=== PATIENT | female | born 1980 | race Caucasian/White ===

== ENCOUNTER 2018-11-12 10:24 | Inpatient (IN) | payer OTHER ==
--- NOTE | 2018-11-12 10:52 | EDPHY ---
H & P Time Seen by Provider: 11/12/18 10:27 HPI/ROS: HPI: This is a 38-year-old female who presents with Chief Complaint: Worsening depression and suicidal thoughts Location: Psychiatric Quality: Worsening depression and suicidal thoughts Duration: 4 days Signs and Symptoms: no auditory hallucinations, no visual hallucinations, + suicidal ideation with a plan, no homicidal ideation, no paranoia Timing: Acute on chronic Severity: Severe Context: Patient has a history of anxiety, depression, taking Prozac 40 mg and Ativan as needed for the last 1 year, presents accompanied by her with constant thoughts of ending her life by driving her car over a dragan or choking herself over the last 4 days. She has not been able to come out of their bedroom or get out of bed for the last 4 days. She has excessive crying and sobbing. She has not eaten in 4 days. She has not participated in the care of her children or family. Patient reports feelings of hopelessness, being very self critical, upset and self conscious about female balding and having to wear wig. Met with psychiatrist today and expressed these concerns and her psychiatrist sent her to the emergency room for M1 hold. She sees a counselor monthly. Currently on her menses. Modifying Factors: Prozac and Ativan Comment: ROS: A comprehensive 10 system review of systems is otherwise negative aside from elements mentioned in the history of present illness. MEDICAL/SURGICAL/SOCIAL HISTORY: Medical history: Anxiety, Depression Surgical history: Denies Social history: Nonsmoker. with children. Family history noncontributory. CONSTITUTIONAL: Tearful, tidy, cooperative, adult white female, wearing beanie , at bedside, awake and alert, mild distress HEENT: Atraumatic and normocephalic, PERRL, EOMI. Nares patent; no rhinorrhea; no nasal mucosal edema. Tympanic membranes clear. Oropharynx clear, no exudate and moist pink mucosa. Airway patent. No lymphadenopathy. No meningismus. Cardiovascular: Normal S1/S2, regular rate, regular rhythm, without murmur rub or gallop. PULMONARY/CHEST: Symmetrical and nontender. Clear to auscultation bilaterally. Good air movement. No accessory muscle usage. ABDOMEN: Soft, nondistended, nontender, no rebound, no guarding, no peritoneal signs, no masses or organomegaly. No CVAT. EXTREMITIES: 2/2 pulses, strength 5/5, no deformities, no clubbing, no cyanosis or edema. NEUROLOGICAL: no focal neuro deficits. GCS 15. SKIN: Warm and dry, no erythema. no rash. Good capillary refill. PSYCH: Low self-esteem, very self critical, feelings of hopelessness, good eye contact, no flight of ideas, organized thought process, fair insight and judgment, no auditory hallucinations, no visual hallucinations, + suicidal ideation with a plan, no homicidal ideation, no paranoia Source: Patient, Family (), RN/MD Exam Limitations: No limitations - Personal History LMP (Females 10-55): 1-7 Days Ago Current Tetanus Diphtheria and Acellular Pertussis (TDAP): Yes Tetanus Vaccine Date: 2013 - Medical/Surgical History Hx Asthma: No Hx Chronic Respiratory Disease: No Hx Diabetes: No Hx Cardiac Disease: No Hx Renal Disease: No Hx Cirrhosis: No Hx Alcoholism: No Hx HIV/AIDS: No Hx Splenectomy or Spleen Trauma: No Other PMH: anxiety, depression, SI - Social History Smoking Status: Never smoked Constitutional: Initial Vital Signs Temperature (C) 37.1 C 11/12/18 10:27 Heart Rate 69 11/12/18 10:27 Respiratory Rate 16 11/12/18 10:27 Blood Pressure 148/134 H 11/12/18 10:27 O2 Sat (%) 98 11/12/18 10:27 O2 Delivery Mode Room Air Allergies/Adverse Reactions: No Known Allergies Allergy (Verified 04/11/16 18:51) Home Medications: Medication Instructions Recorded FLUoxetine [Prozac 10 MG (RX)] 10 mg PO DAILY 11/26/12 Hydrocodone/APAP 5/325 [[place] 1 - 2 tab PO Q4PRN PRN #12 tab 04/11/16 5/325 (*)] Ativan 11/12/18 Medical Decision Making ED Course/Re-evaluation: 1100: Vital signs reviewed and show mildly elevated systolic and diastolic pressures. Placed on M1 hold for worsening severe depression with suicidal ideation with a plan and failure of outpatient treatment. Labs and urine drug screen ordered 1135: Labs reviewed and grossly unremarkable. Urine drug screen positive for benzodiazepines and marijuana. Medically clear for mental health evaluation. 1200: [facility] evaluation in progress. 1457: Notified by [facility] that patient has been accepted at [address] [place] [address] for inpatient psychiatric treatment by Dr. Mcclain. EMTALA form completed. This patient was seen under the supervision of my primary supervising physician. I evaluated care for this patient with attending. Differential Diagnosis: Differential diagnosis includes but is not limited to major depression, anxiety disorder, schizophrenia, bipolar disorder, intoxicant use, suicidal ideation, psychosis, dea. - Data Points Laboratory Results: Laboratory Results 11/12/18 10:58 11/12/18 10:58 11/12/18 11/12/18 11/12/18 11:07 10:58 10:58 WBC RBC Hgb Hct MCV MCH MCHC RDW Plt Count MPV Neut % (Auto) Lymph % (Auto) [place] % (Auto) Eos % (Auto) Baso % (Auto) Nucleat RBC Rel Count Absolute Neuts (auto) Absolute Lymphs (auto) Absolute Monos (auto) Absolute Eos (auto) Absolute Basos (auto) Absolute Nucleated RBC Immature Gran % Immature Gran # Sodium 137 mEq/L mEq/L (135-145) Potassium 4.4 mEq/L mEq/L (3.5-5.2) Chloride 100 mEq/L mEq/L (97-110) Carbon Dioxide 27 mEq/l mEq/l (22-31) Anion Gap 10 mEq/L mEq/L (6-14) BUN 20 mg/dL mg/dL (7-23) Creatinine 0.8 mg/dL mg/dL (0.6-1.0) Estimated GFR > 60 Glucose 99 mg/dL mg/dL (70-100) Calcium 10.0 mg/dL mg/dL (8.5-10.4) Beta HCG, Qual NEGATIVE Urine Opiates Screen NEGATIVE (NEGATIVE) Urine Barbiturates NEGATIVE (NEGATIVE) Ur Phencyclidine Scrn NEGATIVE (NEGATIVE) Ur Amphetamine Screen NEGATIVE (NEGATIVE) U Benzodiazepines Scrn NON-NEGATIVE H (NEGATIVE) Urine Cocaine Screen NEGATIVE (NEGATIVE) U Marijuana (THC) Screen NON-NEGATIVE H (NEGATIVE) Ethyl Alcohol < 10 mg/dL mg/dL (0-10) 11/12/18 10:58 WBC 4.94 10^3/uL 10^3/uL (3.80-9.50) RBC 4.92 10^6/uL 10^6/uL (4.18-5.33) Hgb 14.9 g/dL g/dL (12.6-16.3) Hct 44.2 % % (38.0-47.0) MCV 89.8 fL fL (81.5-99.8) MCH 30.3 pg pg (27.9-34.1) MCHC 33.7 g/dL g/dL (32.4-36.7) RDW 11.8 % % (11.5-15.2) Plt Count 341 10^3/uL 10^3/uL (150-400) MPV 8.8 fL fL (8.7-11.7) Neut % (Auto) 58.1 % % (39.3-74.2) Lymph % (Auto) 33.2 % % (15.0-45.0) [place] % (Auto) 6.7 % % (4.5-13.0) Eos % (Auto) 1.2 % % (0.6-7.6) Baso % (Auto) 0.6 % % (0.3-1.7) Nucleat RBC Rel Count 0.0 % % (0.0-0.2) Absolute Neuts (auto) 2.87 10^3/uL 10^3/uL (1.70-6.50) Absolute Lymphs (auto) 1.64 10^3/uL 10^3/uL (1.00-3.00) Absolute Monos (auto) 0.33 10^3/uL 10^3/uL (0.30-0.80) Absolute Eos (auto) 0.06 10^3/uL 10^3/uL (0.03-0.40) Absolute Basos (auto) 0.03 10^3/uL 10^3/uL (0.02-0.10) Absolute Nucleated RBC 0.00 10^3/uL 10^3/uL (0-0.01) Immature Gran % 0.2 % % (0.0-1.1) Immature Gran # 0.01 10^3/uL 10^3/uL (0.00-0.10) Sodium Potassium Chloride Carbon Dioxide Anion Gap BUN Creatinine Estimated GFR Glucose Calcium Beta HCG, Qual Urine Opiates Screen Urine Barbiturates Ur Phencyclidine Scrn Ur Amphetamine Screen U Benzodiazepines Scrn Urine Cocaine Screen U Marijuana (THC) Screen Ethyl Alcohol Departure - Departure Disposition: [facility] IP Clinical Impression: Severe major depression without psychotic features, Planning to commit suicide Condition: Fair
[2018-11-12 11:17] LABS: PLATELET COUNT 341 10^3/uL (150-400)
--- NOTE | 2018-11-12 16:10 | ASMTTLCEVL ---
TLC Evaluation - Basic Information Evaluation Start Date and 11/12/2018 12:00 PM Time Hospital Status Answers: M1 Hold 72-hr M1 Hold Start Date 11/12/2018 11:00 AM and Time Patient statement Notes: "I've never felt like I enjoy life like a normal person." Narrative Notes: The patient is a 38 y/o female, , unemployed with a hx of depression. She lives at home with her family in [place], [place]. The patient self presented in the [facility] ED after her visiting her psychiatrist, who recommended she come to the ED for further evaluation. The patient was read her rights @ 12:00. Per M1 hold placed by ED physician, "Patient presents with suicidal thoughts with a plan of driving her car off of a dragan or choking herself over the last four days. Worsening severe depression. Unable to participate in activities of daily living. Failed outpatient treatment." The patient reported that the main reason she wants to live is for her two children (6 y/o, 4 y/o). She reported that she has not gotten out of bed for the past week, nor eatenlosing "10lbs." She reported decreased concentration, crying spells, suicidal ideation, and anger/rage. She stated, "I've never felt like I enjoy life like a normal person." The patient reported that today is the first day she has "started to feel better" including leaving bed and having an appetite. The patient expressed anxiety and ambivalence; stating "I don't know what to expect." The patient expressed concern that her symptoms were due to PMS and related to possible hormonal imbalance resulting in a recent visit to the director of infection prevention; starting the patient on control to regulate menstruation. The patient's was present in the [facility] ED and is concerned by her suicidal statements and hopeful about connecting her with resources. 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 Prior suicide attempts Notes: The patient denied any prior suicide attempts. Prior hospitalizations Notes: The patient reported the following previous hospitalizations for mh. Treatment Responses Notes: There is not sufficient information to determine the patients treatment response. History of violence Notes: The patient denied any homicidal ideation or previous hx of violence. The patient reported a hx of severe bullying in adolescence. She reported recent feelings of "anger/rage;" unexpressed. Therapist: Dr. Jennings [phone] Psychiatrist: Fredy Flood [phone] Medications (name, dosage, route, freq uency) Notes: STOP Prozac 40mg, once daily, PO START Lexapro 20mg, once daily, PO Lorazepam, .5mg, PRN, up to three times daily, PO Allergies/Reaction Notes: no known allergies Sleep Notes: The patient reported that she has been "sleeping all day and unable to get out of bed" for the past week. Appetite Notes: The patient reported a decreased appetite and minimal intake over the past week. Medical/Surgical history Notes: The patient denied any significant medical/surgical hx. Substance use history (frequency, intensity, his tory, duration) Notes: There was no substance abuse reported. Family composition Notes: The patient's family lives locally including her relatives. The patient has two children (4 y/o, 6 y/o). Family psychiatric/substance abuse history Notes: The patient denied any family psychiatric/substance abuse hx with the exclusion of her paternal uncle who abused heroin. Developmental history Notes: The patient denied any developmental issues or learning disabilities. The patient denied ADD or ADHD. The patient denied any TBIs, concussions, or LOC.The patient denied any physical abuse, emotional abuse, or sexual abuse. The patient endorsed having achieved normal developmental milestones. The patient reported a hx of severe bullying in adolescence. Abuse concerns Answers: None Marital status/children Notes: The patient is and has two children (4 y/o, 6 y/o). Living situation Notes: The patient lives at home with her family. Sexual history/orientation Notes: The patient is heterosexual. Peer support/family strengths Notes: The patient endorsed having a supportive peer group. She reported that she struggles to trust her friendships. Education level/history Notes: The patient reported having attended high school and some college, bachelors degree in Computer Science. Work history Notes: The patient is unemployed. She is a fulltime parent. Notes: no known affiliation Legal Notes: The patient denied any legal issues. Zoroastrian/Spiritual Notes: The patient reported none that would interfere with treatment. Leisure Notes: The patient reported enjoying exercise and snowboarding. Collateral Notes: The collateral data was obtained from current and previous [facility] ed records/staff, 27-65 M1, and family members: Tino May. Patient's strengths Answers: Honest (Please select at least TWO strengths): Insightful Motivated for Treatment Supportive Family [facility] Evaluation - Mental Status Exam Appearance: Answers: Appropriate Clean Well Groomed Neat Eye Contact: Answers: Appropriate for Culture Good/Direct Mood: Answers: Depressed Sad Affect: Answers: Appropriate Anxious Calm Nervous Sad Tearful Behavior: Answers: Appropriate Cooperative Anxious Crying Fatigued Talkative Speech: Answers: Relevant Logical Clear Coherent Soft Thought Process: Answers: Organized Oriented Goal Oriented Insight: Answers: Fair Judgement: Answers: Poor Manic Signs/Symptoms Answers: Irritability Depression Answers: Crying Spells Signs/Symptoms: Difficulty Concentrating Diminished Interest Diminished Pleasure Hopelessness Sad Mood Anxiety Signs/Symptoms Answers: Generalized Anxiety Panic Attacks Hallucinations: Answers: None Current Stage of Change Answers: Contemplation Pt reported to have Answers: Yes suicidal/self-injuring ideation/behavior? Pt reported to be making Answers: Yes suicidal/self-injuring threats? Pt reported to have Answers: No aggression/assault ideation/behavior? Pt reported to be making Answers: No aggression/assault threats? Pt exhibits inability to Answers: No care for self/grave disability? Ideation/behavior is Answers: No chronic? Patient has a specific Answers: Yes plan? Pt has access to means to Answers: Yes execute the plan? Ideation has Answers: No delusional/hallucinatory content? History of Answers: Yes suicidal/self-injuring ideation, behavior, or threats? History of Answers: No aggressive/assaultive ideation, behavior, or threats? History of serious Answers: No physical harm to self/others while in treatment setting? [facility] Evaluation - Suicide/Homicide Risk Suicide Risk Factors: Answers: Anhedonia Anxiety/Panic, Severe Hopelessness Inadequate Social Support Major Depression Homicide/violence risk Answers: None factors: Current Suicidal Answers: No Ideation? Current Suicidal Ideation Answers: Yes in the Past 48 Hours? Current Suicidal Ideation Answers: No in the Past Month? Suicide Internal Answers: Absence of Psychosis Protective Factors: Frustration Tolerance Suicide External Answers: Positive Therapeutic Protective Factors: Relationships Responsibility to Children Ranking of patient's Answers: Severe suicidal risk: Ranking of patient's Answers: Low homicidal risk: [facility] Evaluation - Wrap-up BDI Total Score: 49 BDI Question #2 Score: 2 BDI Question #9 Score: 1 BSS Total Score: 10 AXIS I Diagnosis (include DSM-V and ICD-10 codes), must also be entered in [employer], which is the source of truth. Notes: Persistent Depressive Disorder (Dysthymia) 300.4 (F34.1) Evaluation End Date and 11/12/2018 04:00 PM Time (HH:MM): Date Signed: 11/12/2018 04:10 PM Electronically Signed By:Lili Marion
--- NOTE | 2018-11-12 16:12 | ASMTTCLDSP ---
TLC Discharge Disposition Disposition: Answers: Admit Discharge Concerns/Recommendations: Notes: In consultation with [facility] ED physician, Omayra Rothman MD and [facility] on-call psychiatrist, Arley Mcclain MD, both concurred that pt appears to meet 27-65 criteria requiring psychiatric hospitalization as the patient appears to be an imminent risk of harm to self due to a mental illness condition. The patient was read the Patient Rights and Responsibilities Statement (placed on chart). The patient was given the 3[facility] prohibited belongings list while in the ED. Was patient given the Answers: Not applicable Inpatient Behavioral Health Prohibited Belongings List while in the ED? For inpatient Arley Mcclain MD admission, the following psychiatrist agreed to accept patient for admission to Behavioral Health ([facility]): Type of Hold: Answers: M1/72-hour Hold Hold initiated by: Answers: ED Physician Date Signed: 11/12/2018 04:12 PM Electronically Signed By:Lili Marion
--- NOTE | 2018-11-12 16:14 | ASMTLCPROG ---
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 The patient stated, "My hair is never coming back and it is falling out by the handfuls. It has a huge effect on me." Date Signed: 11/12/2018 04:14 PM Electronically Signed By:Lili Marion
[2018-11-12] MEDS ORDERED: ACETAMINOPHEN 325 MG TAB PO PRN (19:14)
[2018-11-12] MEDS ORDERED: MAGNESIUM HYDROXIDE 30 ML UDCUP PO PRN (19:14)
[2018-11-12] MEDS ORDERED: MAG HYDROX/AL HYDROX/SIMETH 30 ML UDCUP PO PRN (19:14)
[2018-11-12] MEDS ORDERED: NICOTINE POLACRILEX 2 MG GUM B PRN (19:14)
--- NOTE | 2018-11-13 09:53 | ASMTBHMTP ---
Master Treatment Plan Master Treatment Plan Answers: Depressed Mood with for: Suicidal Ideation Date: 11/13/2018 Diagnosis on Admission: Persistent Depressive Disorder (Dysthymia) 300.4 Expected length of stay: 3-5 Days Reason for admission: Notes: The patient is a 38 y/o female, , unemployed with a hx of depression. She lives at home with her family in [place], [place]. The patient self presented in the [facility] ED after her visiting her psychiatrist, who recommended she come to the ED for further evaluation. The patient was read her rights @ 12:00. Per M1 hold placed by ED physician, "Patient presents with suicidal thoughts with a plan of driving her car off of a dragan or choking herself over the last four days. Worsening severe depression. Unable to participate in activities of daily living. Failed outpatient treatment." The patient reported that the main reason she wants to live is for her two children (6 y/o, 4 y/o). She reported that she has not gotten out of bed for the past week, nor eatenlosing "10lbs." She reported decreased concentration, crying spells, suicidal ideation, and anger/rage. She stated, "I've never felt like I enjoy life like a normal person." The patient reported that today is the first day she has "started to feel better" including leaving bed and having an appetite. The patient expressed anxiety and ambivalence; stating "I don't know what to expect." The patient expressed concern that her symptoms were due to PMS and related to possible hormonal imbalance resulting in a recent visit to the cam milling machine operator; starting the patient on control to regulate menstruation. The patient's was present in the [facility] ED and is concerned by her suicidal statements and hopeful about connecting her with resources. Patient's stated presenting problems: Notes: Pt. reports having a "week of hormonal changes". Pt. reports having an appointment with her psychiatrist and him recommending she come into the hospital. Patient's goals for treatment: Notes: Pt. reports she "want to figure out if there's more to it", and "why it comes and goes". Patient's strengths: Notes: Pt. reports she is "empathic, kind, and a good support for friends". Identify supports outside of hospital: Notes: Pt. stated her and her mother. Discharge criteria: Notes: Suicidal ideation will resolve and patient will have a plan to safely manage recurrent suicidal ideation. Initial disposition plan/considerations: Notes: Pt. stated she will be returning to her home. Master Treatment Plan Required Signatures Psychiatrist signature: Answers: Psychiatrist: RN on-shift signature: Answers: RN: Patient signature: Answers: Patient: Date Signed: 11/13/2018 09:52 AM Electronically Signed By:Vickie Orourke
--- NOTE | 2018-11-13 10:35 | ASMTCMCOM ---
CM Note CM Note Notes: CC met with pt. to complete MTP. Pt. reports being on prozac, but having a tolerance to it. Pt. reports possibly needing to increase her dosage. Pt. reports for the last three months having "bad PMS". Pt. reports having "uncontrollable anger" and then feeling depressed once she begins her cycle. Pt. reports seeing her OBGYN recently and restarting control to help manage her cycles. 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 Pt. reports this being a constant issue for her, adding she has several wigs and hats. Pt. reports having providers in [place], Fredy Flood (thx) and Que Kenny (Prescriber), and having signed ROIs. Pt. reports she is interested in an IOP. 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 Pt. reports having very negative self talk. CC and Pt. discussed different therapist and skills to assist patient in increasing her self worth. Pt. presents as alert, mostly calm, slightly anxious, tearful at times, good eye contact, having some insight, and cooperative. Staff report pt. sleeping 9 hours and being medication compliant. TLC left messages with pt's providers. CC to provide information on available IOPs and to assist pt. is enrolling in one. Date Signed: 11/13/2018 10:35 AM Electronically Signed By:Vickie Orourke
[2018-11-13] MEDS: ETHINYL ESTRADIOL PO SCH ×2 (10:44→16:10)
[2018-11-13] MEDS: DROSPIRENONE PO SCH ×2 (10:44→16:10)
[2018-11-13] MEDS ORDERED: LORazepam 0.5 MG TAB PO PRN (15:24)
[2018-11-13] MEDS: FLUoxetine 20 MG CAP PO SCH (15:45)
--- NOTE | 2018-11-13 16:11 | BCON ---
[f rep st] BEHAVIORAL HEALTH CONSULTATION INTERNAL MEDICINE CONSULTATION DATE OF CONSULTATION: 11/13/2018 REFERRING PHYSICIAN: Arley Mcclain MD REASON FOR CONSULTATION: Medical clearance for inpatient behavioral health stay. HISTORY OF PRESENT ILLNESS: This patient has a 4-day history of exacerbation of depression. She came to the emergency department with her . She was evaluated by the mental health team and admitted for further psychiatric care. She currently is without any acute medical complaints. PAST MEDICAL HISTORY: 1. Depression. 2. Androgenetic alopecia. PAST SURGICAL HISTORY: She has not had any surgeries. MEDICATIONS: She was taking fluoxetine and lorazepam as well as a control pill. SOCIAL HISTORY: She is . She lives with her . She has 2 young children. 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 She is a former smoker. She uses marijuana. FAMILY HISTORY: Noncontributory. PHYSICAL EXAM: VITAL SIGNS: Blood pressure is 121/62, heart rate is 71, respiratory rate is 16, oxygen saturation was 90% on room air at 6 a.m. today, temperature is 36.7 degrees centigrade. Her weight is 46.5 kg for a body mass index of 19.4. GENERAL: This is a well-nourished, well-developed woman, sitting at the desk in her room, dressed in street clothes, cooperative, and in no acute distress. HEENT: Extraocular movements are intact. Pupils are equal , round, reactive to light. Mucous membranes are moist. Dentition is in good condition. She has an uncrowded airway, Mallampati class 1. NECK: Supple. HEART: Regular rate and rhythm with no murmurs, rubs, or gallops. LUNGS: Clear to auscultation bilaterally. ABDOMEN: Benign. EXTREMITIES: There is no cyanosis, clubbing, or edema. NEUROLOGIC: She is alert and oriented x3. Cranial nerves 2 through 12 are grossly intact. There is no focal weakness. Sensation is intact to light touch. Gait is within normal limits. LABORATORY STUDIES: Drawn yesterday. CBC was completely within normal limits. Serum chemistry revealed normal renal function and electrolytes. Hemoglobin A1c was normal at 5.6. Lipid panel revealed slightly elevated triglycerides at 180, elevated cholesterol of 265, an elevated LDL at 148 and an elevated HDL at 81. Beta HCG was negative for . Toxicology screen in the serum was negative for ethyl alcohol. The urine was non-negative for marijuana and benzodiazepines. ASSESSMENT AND RECOMMENDATIONS: 1. Mental health issues pending further evaluation and management per Psychiatry and the mental health team. 2. Dyslipidemia. Given her age and otherwise good health, there is no indication at present to consider treatment. This should be monitored approximately once a decade. 3. Androgenetic alopecia. She reports that she has had multiple treatments and wears wigs currently. There is no further evaluation or treatment indicated. I see no medical contraindications to this patient's continued stay on the inpatient behavioral health unit or to any psychiatric medications or procedures. Thank you very much for including me in the care of this patient. Please do not hesitate to contact me or the hospitalist service should there be need for further medical evaluation. /[id number]/MODL MTDD
--- NOTE | 2018-11-13 16:55 | BAPA ---
[f rep st] ADMISSION PSYCHIATRIC ASSESSMENT DATE OF SERVICE: 11/13/2018 CHIEF COMPLAINT: "I have never felt like I enjoy life like a normal person." HISTORY OF PRESENT ILLNESS: The patient is a 38-year-old woman with a history of depression. She lives at home with her family. She self presented to [facility] ED after her psychiatrist recommended that she come into the hospital for further evaluation. She was placed on a mental health hold by the ED physician. The M1 hold states, "patient presents with suicidal thoughts with a plan of driving her car off a dragan or choking herself for the last 4 days, worsening severe depression, unable to participate in activities of daily living. Failed outpatient treatment." The patient reports that she does not have a plan or intent to hurt herself. She says the main reason she wants to live is for her 2 children. However, she does report not getting out of bed for the past week, a 10 pound weight loss, decreased focus, concentration, crying spells, increased irritability, increased mood swings, suicidal thoughts. She said that 11/12/2018, was the first day she "started to feel better," including getting out of bed and getting dressed and having an appetite. The patient says that she thinks her symptoms are due to premenstrual syndrome and related to possible hormone imbalance. She went to see her cavalry officer recently who started the patient on control to regulate her menstruation. When this MD met with the patient on the inpatient Behavioral Services Unit, she was calm, pleasant, cooperative. She showed no signs of distress or agitation. She denied feeling sad, helpless, hopeless, worthless, or anxious. She denied having thoughts, plans or intents to hurt herself or anyone else. She said that she had spoken with her outpatient psychiatrist, Que Kenny. She said that she has only known Dr. Kenny for a couple of months. She has only seen him once. She says that he felt like he did not know her condition well enough to make a recommendation about medication switching, so he sent her to the emergency department for further evaluation. The patient denies ever experiencing a manic episode. She denies having periods of increased goal-directed activity, decreased need for sleep, racing thoughts, pressured speech, increased irritability, impulsivity, reckless behavior, grandiose delusions or elevated elated mood. She says that she has never experienced psychotic symptoms. She says that she has had depression and anxiety for most of her life. She says that it has been well managed with Prozac in the past. She says that whenever she has gone through a period where her depression got worse, she said they, "always increase my medication and that helped." She does not remember ever being on more than 40 mg of Prozac. She says that for the last week she doubled her dose of Prozac to 80 mg and she thinks that is why she started feeling better on Thursday, but said she did not take any medication on Thursday and she is feeling a little anxious, she thinks due to withdrawal from the Prozac. PAST PSYCHIATRIC HISTORY: The patient states that she was diagnosed with dysthymia when she was an adolescent for chronic, low grade depression. She said that more recently, she has been treated for major depressive disorder, but she does not know what diagnosis Dr. Kenny has given her because he is a new provider. She said that in the past she took Paxil, but said that it gave her very bad withdrawal symptoms when she would skip doses and she said that she has been on Prozac for most of the last 10 years. She said that medication seemed to work very well for both her depression and her anxiety. She said that in the past when her symptoms would get worse, they would usually increase her dose of medication, and "that would help." The patient denies any prior suicide attempts. She denied any prior psychiatric hospitalizations. She states in the past she has also been prescribed Ativan 0.5 daily p.r.n. for anxiety, but says that she does not use it on a regular basis. She has recently started seeing Dr. Que Hernandez as her outpatient prescriber. She also sees Jaret Flood in [place] for individual psychotherapy, but she says that she is only able to see him once a month because she does not make appointments in advance. ALLERGIES: The patient has no known drug allergies. CURRENT MEDICATIONS: The patient is currently prescribed Prozac 40 mg p.o. daily, lorazepam 0.5 mg p.o. daily p.r.n., and she is on Rosario control. LABORATORY DATA: White cell count is 4.94, hemoglobin 14.9, hematocrit 44.2, sodium 137, potassium 4.4, chloride 100, BUN 20, creatinine 0.8, glucose 99. Hemoglobin A1c 5.6, calcium 10.0, triglycerides 180, cholesterol 265. LDL 148, HDL 81. Beta hCG was negative. Urine drug screen was positive for benzodiazepines and marijuana. Negative for all other drugs of abuse. PAST MEDICAL HISTORY: The patient denies any chronic medical issues, no acute medical problems, no prior surgical history. SOCIAL HISTORY: Patient is . She has a 6-year-old and a 4-year-old. She lives at home with her family. She attended high school and some college. She has a bachelor's degree in computer science. She is currently unemployed, works full-time as a parent. FAMILY HISTORY: Patient denies any family history of mental illness or substance use disorder, although she states that a paternal uncle used heroin. TRAUMA HISTORY: Patient denies a prior history of psychological, sexual or physical abuse. LEGAL HISTORY: Patient denies any current legal issues. MENTAL STATUS EXAMINATION: This is a short, well-developed, appropriately groomed woman wearing sweat pants and a long sleeve sweatshirt, standing in the hallway leaning against the wall. She is alert and oriented x4. Her affect is euthymic. Her demeanor is appropriate. She makes good eye contact. Her speech rate and volume were both normal. Her intellectual function appears to be average. She denies feeling sad, helpless, hopeless, worthless, and anxious at the current time, although she did present with sadness, hopelessness, and anxiety. She states that she is no longer having thoughts, plans, or intents to hurt herself or anyone else. She denies any symptoms of psychosis. She also denies any current symptoms of dea and states that she has never experienced a manic episode in her life. She denies increase in goal-directed activity, decreased need for sleep, racing thoughts, pressured speech, grandiose delusions, and elevated or elated mood. Her thought process is linear and goal directed. Her insight and judgment are both fair. IMPRESSION: 1. Major depressive disorder, recurrent, severe, without psychotic features. 2. Cannabis use disorder, unknown severity. 3. Lack of social support, some stress in her marriage, difficulty parenting a 6 and a 4-year-old, currently unemployed. Not sure what to do once her kids are both in school. Says that she feels at "loose ends.". PLAN: 1. Admit patient to the Inpatient Behavioral Health Services unit on [address] on an M1 hold. 2. Monitor closely for safety. The patient is not currently exhibiting any unsafe behavior. She is acting appropriately and she is denying any thoughts, plans, or intents to hurt herself or anyone else. 3. We will continue to monitor and observe the patient. This MD spent a great deal of time discussing the risks, benefits, and side effects of different antidepressant medications, as well as ruling in or out a diagnosis of bipolar spectrum disorder. The patient does not meet criteria for ever having a manic episode. She denies ever experiencing symptoms of dea. It seems that the most accurate diagnosis for her at this time his major depressive disorder, although the patient does admit to ongoing use of cannabis. MD talked to the patient about the risks of using cannabis, including the risk for increased mood lability and increased irritability and the possibility of psychosis as well as worsening depression, rebound anxiety, and increased thoughts of suicide for people with prolonged exposure to cannabis use. The patient had questions about Prozac versus Lexapro. These were 2 medications that have been discussed. She has been on the Prozac for a long time and her outpatient psychiatrist, Dr. Kenny, had talked to her about the possibility of switching to a new SSRI such as Lexapro. After a lengthy discussion about the pros and cons of increasing the patient's current dose of fluoxetine which has never been above 40 mg total daily dose or switching to a new SSRI, the patient gave informed consent to increase her Prozac to 60 mg p.o. daily. She has been taking 80 mg for the last 5 days and says that seem to help her feel better. MD suggested a more conservative titration and the patient agreed with increasing dose to 60 mg daily and then following up with her outpatient psychiatrist, Dr. Kenny after discharge. 4. The patient has been seeing Fredy Flood for individual psychotherapy, but she is only going to see him once a month. She says that the reason she does not see him more frequently is because she waits to make her next appointment until she sees him in person. MD suggests that she might plan ahead and schedule weekly or biweekly sessions and on the same day every week. The patient has requested information about intensive outpatient therapy and said that she was interested in doing group therapy to get a more intensive experience and to learn skills faster. The respiratory care technician provided the patient with referrals and information about several IOP programs in the area. 5. The patient said that she would contact Dr. Kenny and make her own followup appointment. She said that she would also call Fredy Flood and schedule more frequent outpatient sessions with him. She said that she would wait and talk to Fredy Flood and discuss the option of doing IOP before she made a decision. 6. Estimated length of stay is 1-2 days. /[id number]/MODL MTDD
[2018-11-14] MEDS: ETHINYL ESTRADIOL PO SCH (08:15)
[2018-11-14] MEDS: DROSPIRENONE PO SCH (08:15)
[2018-11-14] MEDS: FLUoxetine 20 MG CAP PO SCH (08:15)
--- NOTE | 2018-11-14 15:13 | ASMTBHFAM ---
Notes Note: Notes: This automatic typewriter inspector discussed Mental Health Intensive Outpatient Therapy at [facility] with the patient including the following details: M/W/F 13:00-16:00 3 hours per session/18 sessions ; [phone] Call for 1hr (free) Intake Evaluation. The patient has an upcoming vacation plan with friends; this automatic typewriter inspector discussed in detail with the patient and her . The patient and her established the following paramiters: abstain from substances, schedule intake appointment with [facility], notify friends of current MH issues, and create safety plan. Date Signed: 11/14/2018 03:12 PM Electronically Signed By:Lili Marion
--- NOTE | 2018-11-14 16:34 | SOAPPROG ---
SOAP Progress Note Assessment/Plan: Assessment: 38 yo woman with h/o MDD who was admitted for SI with thoughts about driving off bridge. She denies intent to act on these thoughts. She says her OP psych MD , Que Kenny, told her to go to ED b/c she wasn't getting any better on her current medication, Prozac. Plan: 11/14/18 16:31 1. Patient reports feeling "better" on increased dose of Prozac. She is not taking 60mg without any physical complaints or SE's. 2. Patient was given referrals for IOP classes by CC yesterday. She is going to talk to her and therapist to decide which program to start. 3. Patient's MHH expires tomorrow. She denies any SI/HI. 4. Likely to d/c home tomorrow when hold expires. Subjective: Patient reports feeling "better" on increased dose of Prozac. She is anxious about her follow up care. She is undecided about whether to do IOP and where to go. MD spoke with patient at length about the benefits of group therapy and the differences between individual therapy and IOP. MD encouraged patient to increase frequency of her individual therapy whether or not she does an IOP. MD also encouraged patient to discuss her options with her current providers and her . She agreed with this plan. Patient denies any SI/HI. Objective: Vital Signs Temp Pulse Resp BP Pulse Ox 36.4 C 65 16 119/72 98 11/14/18 06:00 11/14/18 06:00 11/14/18 06:00 11/14/18 06:00 11/14/18 06:00 MSE: Affect: Euthymic Mood: "Better" TP: Linear, goal-directed TC: Denies any SI/HI Insight/Judgment: Fair - Time Spent With Patient Time Spent With Patient: 15" - Pending Discharge Pending Discharge Within 24 Hours: Yes Pending Discharge Date: 11/15/18 (Likely to d/c on Thursday ) Pending Discharge Time: 11:00 ICD10 Worksheet Patient Problems: Problems Problem Status Onset Planning to commit suicide Acute Severe major depression without psychotic features Acute
[2018-11-15 04:54] VITALS: BP 121/72
[2018-11-15] MEDS: FLUoxetine 20 MG CAP PO SCH (08:49)
[2018-11-15] MEDS: DROSPIRENONE PO SCH (08:50)
[2018-11-15] MEDS: ETHINYL ESTRADIOL PO SCH (08:50)
--- NOTE | 2018-11-15 11:54 | ASMTBHFAM ---
Notes Note: Notes: The patient participated in a family meeting with her , Tino, the provider, and this screenplay writer. The patient discussed her discharge plan including follow up care, medication changes, etc. The patient was encouraged to consider family/couples therapy, AN as a resource, and IOP [place]. The patient confirmed follow up appts on 11/23 (therapy) and 12/07 (psychiatry); times unknown. Date Signed: 11/15/2018 11:53 AM Electronically Signed By:Lili Marion
--- NOTE | 2018-11-15 17:41 | BDS ---
[f rep st] BEHAVIORAL HEALTH DISCHARGE SUMMARY REASON FOR ADMISSION: From the ED note dated 11/12/2018, the patient presented to the emergency department accompanied by her with constant thoughts of ending her life by driving her car over a dragan or choking herself. Patient reported these thoughts over the last 4 days. Patient was admitted involuntarily and on an M1 hold for being a danger to herself. Patient was admitted for safety, crisis stabilization, and medication management. ADMITTING DIAGNOSIS: Major depressive disorder, severe. ADMISSION PHYSICAL EXAM: Patient was seen on 11/13/2018 for history and physical consultation for inpatient psychiatric hospitalization and treatment. Patient was medically cleared for inpatient psychiatric hospitalization and treatment. For further details, please refer to consultation document dated . ADMISSION LABS: 1. CBC within normal limits. 2. BMP within normal limits. 3. Hemoglobin A1c within normal limits at 5.6. 4. Lipid panel within normal limits except triglycerides were elevated at 180. Cholesterol was elevated at 265, LDL cholesterol calculated was elevated at 148, VLDL cholesterol was elevated at 36, non-HDL cholesterol is elevated at 184 and HDL cholesterol is elevated at 81. 5. Beta hCG qualitative test was negative. 6. Toxicology screen was non-negative for benzodiazepines and nonnegative for THC, negative for all other substances screened and negative for ethyl alcohol. MAJOR PROCEDURES OR TESTS: None. HOSPITAL COURSE: The most prominent symptoms and behaviors while the patient was here were reports of severe anxiety and depression. Treatment modalities utilized were milieu and group therapy. Prozac was increased to 60 mg p.o. daily to target mood symptoms, was tolerated with no report of side effects and with good response. Patient has improved considerably with no signs of psychiatric symptoms and no psychiatric symptoms expressed. Patient reports she has improved since admission, states to be in stable condition, feels safe to discharge, and she contracts for safety. Patients response to treatment was good. There were no adverse or unexpected results of treatment. The patient was safe throughout stay, active in treatment, engaged in groups, and was appropriate with staff. Patient met with treatment team prior to discharge to assess readiness to discharge and review discharge plan. The treatment team consensus is the patient in stable condition, has a safe discharge plan, and is ready to discharge today. CONDITION AT DISCHARGE: Patient is in stable condition and is no longer a danger to self or others, and is not gravely disabled due to mental illness. Patient is no longer in need of inpatient level of care, and can be safely and effectively treated within the community. The patients level of risk at time of discharge is low. MSE: The patient is casually dressed and with good hygiene , and looks stated age. Patient is sitting, posture is upright, and position is relaxed. Patient appears awake, alert, and responds appropriately and reasonably during interview. Patient is engaged, relates well to interviewer, and emotional facial expression is appropriate to situation and changes appropriately with topic. Patient is cooperative, makes comfortable eye contact , and movements are voluntary, deliberate, coordinated, and smooth and even with no inappropriate movements. Patient makes laryngeal sounds effortlessly and shares conversation appropriately; pace of conversation is appropriate, and stream of talking is fluent; articulation is clear and understandable; word choice is effortless and appropriate for education level; completes sentences, occasionally pausing to think; rate and volume are appropriate for interview and setting. Patient reports mood as euthymic. Patients affect is stable with full variable range, congruent with mood, and appropriate to speech and circumstances. Patient has linear and logical thinking, with no loose associations, tangential thought, thought blocking, concrete thinking, or any other signs of formal thought disorder. Patient denies suicidal and homicidal ideation, and denies hallucinations and delusions. Patient appears to be a reliable historian with sound judgement and good insight into current condition. Patient has no apparent dysfunction in recent or remote memory noted , and no evidence of gross cognitive dysfunction noted at any point during the interview. DISCHARGE DIAGNOSIS: Major depressive disorder, severe. CURRENT MEDICATIONS: After reviewing options, risks and benefits with the patient, patient agrees to continue Prozac 60 mg p.o. daily. Patient requests a prescription for Prozac at time of discharge. A prescription for 30 days is provided. The prescription is reviewed with the patient at time of discharge to ensure accuracy and patient understanding. DISPOSITION: Patient left hospital independently and voluntarily and plans to return home with her . FOLLOWUP: wellness coordinator reports the appropriate outpatient follow-up services have been established and outpatient appointments have been scheduled. The patient received written instructions with times and dates of outpatient follow-up appointments. The following follow-up recommendations were provided to the patient at discharge: Continue psychotropic medications as prescribed and attend appointments as scheduled. Report any side effects to a psychiatric outpatient provider, a primary care provider, or other health healthcare administration intern. Address any questions or problems concerning the psychotropic medications with a psychiatric outpatient provider, a primary care provider, or other health healthcare administration intern. Contact [facility] or 911, or go to the nearest emergency room, if you are ever a danger to yourself/others, or unable to care for yourself. As soon as possible, establish a routine medication management treatment with a psychiatric provider, establish routine therapy appointments, and follow-up with a primary care provider. LEGAL COURSE: Patient was admitted on an M1 hold for involuntary inpatient psychiatric hospitalization. Patient discharged today independently and voluntarily. ATTITUDE AT TIME OF DISCHARGE: The patients attitude was positive at time of discharge, and patient reports looking forward to discharging today. The patient reports she feels safe to discharge, is no longer a danger to herself or others, is in stable condition, and contracts for safety. Patient states she will continue medications as prescribed, and establish medication management treatment with an outpatient provider after discharge. Patient reports she understands the information that has been provided to her, and she understands, accepts, and agrees to psychotropic medications. Patient describes internal protective factors as the coping skills she has learned while hospitalized here, and she plans to continue to practice these coping skills after discharge. LABS AND RADIOLOGY STUDIES: There were no pending labs or studies at time of discharge. ADVANCE DIRECTIVES: There were no advance directives on file, and patient was full code during this hospitalization. The following psychotropic medication treatment informed consent and recommendations were provided to the patient at time of discharge. Patient reports she understands, accepts, and agrees to the information that has been provided. PSYCHOTROPIC MEDICATION TREATMENT INFORMED CONSENT and RECOMMENDATIONS: Review nature of condition, diagnosis, and prognosis. Review nature and purpose of psychotropic medication treatment. Review type of psychotropic medications being prescribed. Review risk and benefits of psychotropic medication treatment. Review probable length of time will need to take medications. Review risk and benefits of not undergoing psychotropic medication treatment. Review alternative treatments to psychotropic medications. Review psychotropic medications contraindications, side effects, and importance of reporting any side effects to a psychiatric provider, primary care provider, or other health healthcare administration intern. Review importance of her asking a psychiatric provider or primary care provider any questions or problems concerning the psychotropic medications. Review importance of reporting to a psychiatric provider, primary care provider, or other health healthcare administration intern if she plans to or becomes . Review safety plan and the importance to contact [facility] or 911 , or go to the nearest emergency room, if ever a danger to yourself/others, or unable to care for yourself. Recommend upon discharge to establish routine medication management treatment with a psychiatric provider, establish routine therapy appointments, and follow-up with a primary care provider. Verify patient understands, accepts, and agrees to the information that has been provided. /[id number]
== END 2018-11-15 12:19 | disposition home or self-care (01) | DRG 885 ==
LOC: BBEH 17:30
PROVIDERS: ADMIT Psychiatry & Neurology Psychiatry; ATTEND Psychiatry & Neurology Psychiatry
DX: F33.2 Major depressive disorder, recurrent severe without psychotic features (principal); F41.9 Anxiety disorder, unspecified; E78.5 Hyperlipidemia, unspecified; L64.9 Androgenic alopecia, unspecified
CPT/HCPCS: 80305; G0480